=== PATIENT | male | born 1955 | race Caucasian/White ===

== ENCOUNTER 2019-01-28 15:56 | Emergency (ER) | payer OTHER, BC ==
[~2019-01-28] VITALS: Ht 185.4 cm; Wt 88.0 kg
[2019-01-28 16:05] VITALS: Ht 185.4 cm; Wt 88.0 kg
[2019-01-28 17:20] LABS: BASOPHIL % 0.6 % (0-2); PLATELET COUNT 179 x10^3mcL (130-400)
[2019-01-28 17:22] LABS: RED CELL DISTRIBUTION WIDTH 16.8 % (11.5-14.5)
[2019-01-28 17:56] LABS: CALCIUM 9.5 mg/dL (8.5-10.1); CARBON DIOXIDE 38.7 mmol/L (21-32); CREATININE SERUM 3.9 mg/dL (0.7-1.3); POTASSIUM SERUM 4.3 mmol/L (3.5-5.1)
[2019-01-28 18:01] LABS: ALBUMIN 4.2 g/dL (3.4-5.0); BILIRUBIN TOTAL 0.63 mg/dL (0.20-1.00); TOTAL PROTEIN, SERUM 8.1 g/dL (6.4-8.2)
[2019-01-28 19:44] VITALS: BP 130/94
== END 2019-01-28 19:44 | disposition home or self-care (01) ==
LOC: ED 15:56
PROVIDERS: Emergency Medicine
DX: T82.53 Leakage of other cardiac and vascular devices and implants (principal); E11.22 Type 2 diabetes mellitus with diabetic chronic kidney disease; I12.0 Hypertensive chronic kidney disease with stage 5 chronic kidney disease or end stage renal disease; N18.6 End stage renal disease; Z99.2 Dependence on renal dialysis
CPT/HCPCS: 36415

== ENCOUNTER 2020-02-03 17:50 | Emergency (ER) | payer OTHER, BC ==
[~2020-02-03] VITALS: Ht 185.4 cm; Wt 90.7 kg
[2020-02-03 18:01] VITALS: Ht 185.4 cm; Wt 90.7 kg
[2020-02-03 18:17] LABS: PLATELET COUNT 142 x10^3mcL (130-400)
[2020-02-03 18:19] LABS: RED CELL DISTRIBUTION WIDTH 15.1 % (11.5-14.5)
[2020-02-03 18:33] LABS: ALBUMIN 3.9 g/dL (3.4-5.0); BILIRUBIN TOTAL 0.39 mg/dL (0.20-1.00); CALCIUM 9.5 mg/dL (8.5-10.1); CARBON DIOXIDE 33.2 mmol/L (21-32); POTASSIUM SERUM 4.5 mmol/L (3.5-5.1); TOTAL PROTEIN, SERUM 7.1 g/dL (6.4-8.2)
[2020-02-03 18:38] LABS: CREATININE SERUM 4.6 mg/dL (0.7-1.3)
[2020-02-04 00:10] VITALS: BP 138/60
== END 2020-02-04 00:10 | disposition home or self-care (01) ==
LOC: ED 17:50
PROVIDERS: Emergency Medicine
DX: E11.22 Type 2 diabetes mellitus with diabetic chronic kidney disease (principal); I10 Essential (primary) hypertension
CPT/HCPCS: 36415